=== PATIENT | male | born 1950 | race Two or more races ===

== ENCOUNTER 2023-10-03 18:57 | Emergency (ER) | payer MEDICARE, OTHER ==
[~2023-10-03] VITALS: Ht 175.3 cm; Wt 81.6 kg
[2023-10-03] MEDS ORDERED: ASPIRIN 81 MG TAB.CHEW ONE (19:55)
[2023-10-03] MEDS ORDERED: IV NS 0.9% 1,000 ML BAG IV ONE ×2 (20:00)
[2023-10-03] MEDS ORDERED: MORPHINE SULFATE INJ 2 MG/ML DISP.SYRIN IV ONE (20:00)
[2023-10-03] MEDS ORDERED: ASPIRIN 81 MG TAB.CHEW PO ONE (20:00)
[2023-10-03] MEDS ORDERED: MORPHINE SULFATE INJ 4 MG/ML DISP.SYRIN ONE (20:18)
[2023-10-03 20:27] LABS: BASOPHILS # (AUTO) 0.1 K/uL (0.0-0.2); BASOPHILS % (AUTO) 1.2 % (0.0-2.0); EOSINOPHILS % (AUTO) 0.7 % (0.0-6.0); HEMATOCRIT 44 % (39-51); HEMOGLOBIN 14.6 g/dL (13.5-17.5); LYMPHOCYTES # (AUTO) 1.8 K/uL (0.8-4.8); LYMPHOCYTES % (AUTO) 30.4 % (20.0-44.0); MEAN CORPUSCULAR HEMOGLOBIN 29 PG (26.0-33.0); MEAN CORPUSCULAR HGB CONC 33 g/dl (31.0-36.0); MEAN CORPUSCULAR VOLUME 86 fL (80-96); MONOCYTES # (AUTO) 0.3 K/uL (0.1-1.30); MONOCYTES % (AUTO) 5.4 % (2.0-12.0); NEUTROPHILS # (AUTO) 3.8 K/uL (1.8-8.9); NEUTROPHILS % (AUTO) 62.3 % (43.0-81.0); PLATELET COUNT (AUTO) 253 K/uL (150-450); RED BLOOD CELL COUNT(AUTO) 5.09 MIL/uL (4.5-6.0); RED CELL DISTRIBUTION WIDTH 15.7 % (11.5-15.0)
[2023-10-03 20:41] LABS: CALCIUM, SERUM 8.9 mg/dL (8.5-10.1); CARBON DIOXIDE 25 mmol/L (21-32); CHLORIDE 100 mmol/L (98-107); CREATININE 0.9 mg/dL (0.6-1.3); GLUCOSE 160 mg/dL (74-106); POTASSIUM 4.1 mmol/L (3.5-5.1); SODIUM SERUM 137 mmol/L (136-145); UREA NITROGEN, BLOOD 16 mg/dL (7-18)
[2023-10-03] MEDS ORDERED: THIAMINE HCL 100 MG TABLET PO ONE (22:30)
[2023-10-03] MEDS ORDERED: THIAMINE HCL 100 MG TABLET ONE (23:20)
[2023-10-04 03:25] VITALS: BP 135/69; TEMP 99.3; O2SAT 98
== END 2023-10-04 03:26 | disposition home or self-care (01) ==
LOC: ER 19:35
DX: R07.89 Other chest pain (principal); K21.9 Gastro-esophageal reflux disease without esophagitis; F17.200 Nicotine dependence, unspecified, uncomplicated
CPT/HCPCS: 99285; 96374; 96361; 93005; 71045; 85025; 80048; 36415; 84484 ×2; 80320; J2270; J7030; G0480